=== PATIENT | female | born 1995 | race American Indian/Alaskan Native ===

== ENCOUNTER 2017-03-23 13:21 | Inpatient (IN) | payer MEDICAID ==
[2017-03-23] MEDS: TYLENOL PO PRN (14:20)
[2017-03-23 14:30] LABS: Hematocrit 33.6 % (30.3-42.9); Hemoglobin 11.7 gm/dl (10.1-14.3); Mean Corpuscular HGB Conc 35 % (30-34); Mean Corpuscular Hemoglobin 35 pg (28-32); Mean Corpuscular Volume 100 fl (79-97); Platelet Count 137 K/mm3 (140-440); Red Blood Count 3.37 M/mm3 (3.65-5.03); Red Cell Distribution Width 14.5 % (13.2-15.2)
[2017-03-23] MEDS ORDERED: APRESOLINE IV ONE ×2 (14:41→16:58)
[2017-03-23] MEDS ORDERED: MAGNESIUM SULFATE IV ONE (14:45)
[2017-03-23 14:53] LABS: Alanine Aminotransferase 16 units/L (7-56)
[2017-03-23] MEDS ORDERED: CELESTONE SOLUSPAN IM SCH (15:00)
[2017-03-23] MEDS ORDERED: MAGNESIUM SULFATE 40GM/1000ML 40 GM/1,000 ML BAG IV SCH (15:00)
[2017-03-23] MEDS ORDERED: MAGNESIUM SULFATE 4GM/100ML 4 GM/100 ML BAG IV ONE ×2 (15:33→17:00)
[2017-03-23 15:37] LABS: Bilirubin,Urine NEG (Negative); Blood,Urine SM (Negative); Color,Urine Yellow (Yellow); Hyaline Casts,Urine 5 /LPF; Mucus,Urine FEW /HPF; Nitrite,Urine NEG (Negative); Urobilinogen,Urine < 2.0 mg/dL (<2.0)
[2017-03-23 15:38] LABS: Protein,Urine >500 mg/dL (Negative)
[2017-03-23] MEDS ORDERED: LACTATED RINGERS 1,000 ML ONE (15:38)
[2017-03-23] MEDS: CELESTONE SOLUSPAN IM SCH (16:26)
[2017-03-23 16:31] LABS: Uric Acid 6.4 mg/dL (3.5-7.6)
[2017-03-23] MEDS ORDERED: XYLOCAINE 2% INFILTRATI ONE (16:33)
[2017-03-23] MEDS: MAGNESIUM SULFATE 40 GM in NACL 0.9% 1000 ML 1,000 ML IV SCH (16:45)
--- NOTE | 2017-03-23 16:45 | History and Physical Report ---
History of Present Illness Date of examination: 03/23/17 Date of admission: 03/23/2017 Chief complaint: 31 weeks with Elevated BP History of present illness: Patient is a 21 year old , LMP 08/13/16, EDC 05/20/17 at 31 weeks and 5 days gestation who was sent from the office for elevated BP. She went for a routine visit today and her BP was found to be in the 180-203/118-120' s. On arrival, she complained of headache, but denied any visual disturbances or RUQ pain. She denied any contractions, fluid leakage or bleeding, but reported good movement. tracing has been CAT 1 and toco showed no contractions. ` Past History Past Medical History: other (anemia, vit D def) Social history: other (marijuana use during this ) - Obstetrical History Expected Date of Delivery: 05/20/17 Actual Gestation: 31 Week(s) 5 Day(s) : 2 Para: 1 Induced : 1 Medications and Allergies Allergies Allergy/AdvReac Type Severity Reaction Status Date / Time No Known Allergies Allergy Unverified 05/18/13 19:31 Home Medications Medication Instructions Recorded Confirmed Last Taken Type Doxycycline [Vibramycin CAP] 100 mg PO BID #28 capsule 05/18/13 Unknown Rx metroNIDAZOLE [Flagyl] 500 mg PO BID #28 tablet 05/18/13 Unknown Rx HYDROcodone/APAP 5-325 [[place] 1 each PO Q6HR PRN #10 tablet 05/19/13 Unknown Rx 5/325 mg] Ibuprofen [Motrin 600 MG tab] 600 mg PO Q8H PRN #20 tablet 05/19/13 Unknown Rx Active Meds: Active Medications Acetaminophen (Tylenol) 650 mg PO Q6H PRN PRN Reason: Pain, Mild (1-3) Last Admin: 03/23/17 14:20 Dose: 650 mg Betamethasone Acet/Betameth SodPhos (Celestone Soluspan) 12 mg IM Q24HR ABEL Magnesium Sulfate 40 gm/ (Sodium Chloride) 1,080 mls @ 40.5 mls/hr IV DIRECT ABEL PRN Reason: 1.5 GM/HR Magnesium Sulfate (Magnesium Sulfate 4gm/100ml) 4 gm in 100 mls @ 200 mls/hr IV ONCE ONE Stop: 03/23/17 17:29 - Vital Signs Vital signs: Vital Signs Pulse Pulse Ox 58 L 100 01/30/18 13:58 03/23/17 13:58 Temp Pulse Resp BP Pulse Ox 98.3 F 77 18 129/82 100 03/23/17 15:00 03/23/17 16:36 03/23/17 14:20 03/23/17 16:36 03/23/17 15:03 - Physical Exam Cardiovascular: Normal S1, Normal S2 Lungs: Positive: Clear to auscultation Vulva: both: normal Extremities: Positive: edema Deep Tendon Reflex Grade: Normal +2 - Obstetrical FHR: category 1 Uterine Contraction Monitor Mode: External Cervical Dilatation: 0 Cervical Effacement Percentage: 0 station: -3 Results Result Diagrams: 03/23/17 14:10 03/23/17 14:10 Abnormal lab results 03/23/17 03/23/17 Range/Units 14:10 14:10 RBC 3.37 L (3.65-5.03) M/mm3 MCV 100 H (79-97) fl MCH 35 H (28-32) pg MCHC 35 H (30-34) % Plt Count 137 L (140-440) K/mm3 Lactate Dehydrogenase 339 H (91-180) units/L All other labs normal. Assessment and Plan - Patient Problems (1) 31 weeks gestation of Current Visit: Yes Status: Acute (2) Pre-eclampsia Current Visit: Yes Status: Acute Plan to address problem: Admit to labor floor. IV hydration. Toxemia labs ordered. BP monitoring. Hydralazine IV for diastolic over 105. Magnesium sulfate loading dose then maintenance at 1.5 gm/hour. Monitor Mg level and urine output. Monitor DTRs. Celestone for FLM, first dose given. Sonogram done at [facility]. EFW 2 lbs 8 oz. NILESH 12.3. BPP 8/8. MFM consult called for. Avril got the message for the MFM. (3) IUGR (intrauterine growth restriction) Current Visit: Yes Status: Acute Plan to address problem: Umbilical doppler-S/D ration ordered. (4) Anemia Current Visit: Yes Status: Acute Qualifiers: Anemia type: iron deficiency
[2017-03-23] MEDS: LACTATED RINGERS 1,000 ML IV SCH (16:55)
--- NOTE | 2017-03-23 17:22 | Ultrasound Report ---
FINAL REPORT EXAM: US OB BPP WO NON-STRESS HISTORY: well being TECHNIQUE: Biophysical profile obstetrical ultrasound PRIORS: None. FINDINGS: Biophysical profile scoring 2 movement 2 tone 2 breathing 2 fluid 8/8 overall score Cardiac motion: 134 BPM using M-mode doppler Amniotic Fluid Volume: Adequate IMPRESSION: Single intrauterine viable . Biophysical profile score is 8/8
--- NOTE | 2017-03-23 17:44 | Ultrasound Report ---
FINAL REPORT EXAM: US OB FOLLOW UP HISTORY: HTN . TECHNIQUE: Standard full obstetrical ultrasound PRIORS: None. FINDINGS: LMP: 08/13/2016 clinical Age: 31 w 5 d US Age (average) = 28 w 0 d EFW (BPD,HC,AC,FL) = 1124 g +/- 166 g (2 lbs. 8oz. +/- 6oz.) LMP EDC 05/20/2017 US EDC 06/15/2017 CI 77.6 (range 74 to 83) HC/AC 1.17 (range 0.96 to 0.17) FL/BPD 79.7 (range 71.3 to 87.3) FL/HC 21.5 (range 17.3 to 23.3) FL/AC 25.1 (range 20 to 24) BPD 7 cm corresponding to estimated age 28 weeks 0 days HC is 25.9 cm corresponding to estimated age 28 weeks 1 day AC 22.2 cm corresponding to estimated age 26 weeks 4 days FL 5.6 cm corresponding to estimated age 29 weeks 2 days Presentation: Cephalic Activity: Monitored Situs: Normal Placental location: Anterior to the left lateral aspect Placental grade: 3 Cardiac motion: 134 BPM using M-mode doppler Heart (4 CH) : Present Umbilical cord: 3 vessel Bladder: Present Kidneys: Present stomach: Present Diaphragm: Present Spine: Present brain and skull: Present with normal anatomy femurs: Present tibia/fibula: Present humerus: Present radius/ulna: Present Cord Insertion: Present Amniotic Fluid Volume: Adequate NILESH 12.4 cm Cervical Length: 3.6 cm Incidental note is made of several prominent venous lakes in the placenta. The largest measures 5.4 cm. IMPRESSION: Single intrauterine viable with an approximate age of 28 weeks 0 days.
--- NOTE | 2017-03-23 18:12 | Consultation ---
History of Present Illness Consult date: 03/23/17 Requesting physician: ED BORJA History of present illness: HPI 21 y/o ANA 05/10/17 EGA 31 5/7 weeks presented from OB's office with elevated BP's and Severe DUNCAN's BP's at OB noted to be 180-203/118-120's BP upon admission 200/103 per nurse - Received 2 doses of IV Hydralazine and last BP 129/82 Denies H/O CHTN - States Last seen her OB 2 weeks ago and BP normal Reported having DUNCAN's severe since Wednesday not relieved with Tylenol - also c/o of recent swelling in feet DUNCAN's described as 9-12/01 now resolved with Mg and IV Hydralazine and BP improved ======= 02/19/18 [facility] US Noted EFW at 1037 grams (2#5oz) at 39% and BP was 117/73 03/23/17 [facility] US Today EFW at 1124 grams (28 0/7 weeks) < 1 % SEVERE IUGR ----- NO Growth over past month. BPP 8/8 and NILESH at 12.4 cm and Dopplers were normal S/D at 2.6 ====== OB history 2012 Term F 7'9" no comps ====== Denies H/O STD, Med ds, Surg, C/D/D, NKA ====== Labs UA spot > 500 (will expect 24 Hour Urine prot to be extremely high ASL/ALT 23/16 Plts low at 137 H/H at 11.7/33 LDH high at 333 Creat at .7 ======= Abd soft NT No RUQ Pain Ext 1 plus edema DTR 1/4 (on Mg) No clonus EFM no decels ======= Past History Past Medical History: other (anemia, vit D def) - Obstetrical History : 2 Medications and Allergies Allergies Allergy/AdvReac Type Severity Reaction Status Date / Time No Known Allergies Allergy Unverified 05/18/13 19:31 Home Medications Medication Instructions Recorded Confirmed Last Taken Type Doxycycline [Vibramycin CAP] 100 mg PO BID #28 capsule 05/18/13 Unknown Rx metroNIDAZOLE [Flagyl] 500 mg PO BID #28 tablet 05/18/13 Unknown Rx HYDROcodone/APAP 5-325 [[place] 1 each PO Q6HR PRN #10 tablet 05/19/13 Unknown Rx 5/325 mg] Ibuprofen [Motrin 600 MG tab] 600 mg PO Q8H PRN #20 tablet 05/19/13 Unknown Rx Active Meds: Active Medications Acetaminophen (Tylenol) 650 mg PO Q6H PRN PRN Reason: Pain, Mild (1-3) Last Admin: 03/23/17 14:20 Dose: 650 mg Betamethasone Acet/Betameth SodPhos (Celestone Soluspan) 12 mg IM Q24HR ABEL Last Admin: 03/23/17 16:26 Dose: 12 mg Magnesium Sulfate 40 gm/ (Sodium Chloride) 1,080 mls @ 40.5 mls/hr IV DIRECT ABEL PRN Reason: 1.5 GM/HR Last Admin: 03/23/17 16:45 Dose: 1.5 gm/hr, 40.5 mls/hr Lactated Ringer's (Lactated Ringers) 1,000 mls @ 125 mls/hr IV DIRECT ABEL Last Admin: 03/23/17 16:55 Dose: 75 mls/hr Labetalol HCl (Normodyne) 200 mg PO BID ABEL - Vital Signs Vital signs: Vital Signs Pulse Pulse Ox 58 L 100 03/23/17 13:58 03/23/17 13:58 Temp Pulse Resp BP Pulse Ox 98.3 F 72 18 138/89 100 03/23/17 15:00 03/23/17 17:50 03/23/17 14:20 03/23/17 17:50 03/23/17 15:03 Results Result Diagrams: 03/23/17 14:10 03/23/17 14:10 Abnormal lab results 03/23/17 03/23/17 Range/Units 14:10 14:10 RBC 3.37 L (3.65-5.03) M/mm3 MCV 100 H (79-97) fl MCH 35 H (28-32) pg MCHC 35 H (30-34) % Plt Count 137 L (140-440) K/mm3 Lactate Dehydrogenase 339 H (91-180) units/L All other labs normal. Assessment and Plan Asses: 1. [place] IUP at 31 5/7 weeks (APA US Done 02/19/17 - see above) 2. Severe Preeclampsia 3. Severe IUGR at < 1% and No growth over 4 weeks 4. DUNCAN's 5. Thrombocytopenia - Plts at 137 Recommendations 1. Steroids for FLM 2. MgSO4 for both neurprophylaxis and seizure prophylaxis 3. IV Hydralazine or Labetalol for BP's Sys > 160 or diastolic > 110 4. Repeat PIH labs tomorrow am CBC, CMP, LDH Uric Acid 5. Type and screen 6. NICU consult 7. Seq Leg compressors 8. Repeat BPP and cord dopplers and tomorrow 9. Due to Severe Preeclampsia and Severe IUGR and Low Plts would try to get steroids on Board and plan for delivery 24 Hours after steroid complete. IF becomes more symptomatic or compromise or BP's increasing would proceed with delivery earlier. 10. Explained that no growth over past month and delivery indicated for above reasons. 11. Would obtain drug screen and HbA1c 12. Cont EFM
--- NOTE | 2017-03-23 18:40 | Ultrasound Report ---
FINAL REPORT PROCEDURE: Velocities umbilical artery. TECHNIQUE: Grayscale, color Doppler, and spectral waveform analysis of the umbilical artery. HISTORY: Hypertension. COMPARISON: Full obstetric ultrasound dated same day and time. FINDINGS: age: 31 weeks 5 days. S/D ratio average: 2.6 Waveform: Normal Resistive index average: 0.6 Diastolic flow: Persistent heart rate: 129 beats per minute. Impression Normal umbilical cord Doppler ratio, wave form, and resistive index. Persistent diastolic flow.
--- NOTE | 2017-03-23 18:53 | Ultrasound Report ---
FINAL REPORT PROCEDURE: US OB TRANSVAGINAL TECHNIQUE: Limited transvaginal grayscale images for cervical length. CPT 57513 HISTORY: Cervical length. COMPARISON: Full obstetric ultrasound including umbilical arterial Doppler dated same day and time. FINDINGS: Transvaginal cervical length 3.6 cm. There may be a trace amount of fluid in the cervix. IMPRESSION: Transvaginal cervical length 3.6 cm. There may be a trace amount of fluid in the cervix. Recommend clinical correlation. Please refer to full reports on full obstetric ultrasounds dated same day and time.
[2017-03-23] MEDS ORDERED: NORMODYNE IV ONE ×2 (20:17→20:19)
[2017-03-23] MEDS: NORMODYNE PO SCH (22:15)
[2017-03-23 23:15] LABS: Amphetamine Screen,Urine PRESUMPTIVE NEGATIVE; Benzodiazepines Screen,Urine PRESUMPTIVE NEGATIVE; Cocaine Screen,Urine PRESUMPTIVE NEGATIVE; Methadone Screen,Urine PRESUMPTIVE NEGATIVE; Opiate Screen,Urine PRESUMPTIVE NEGATIVE
[2017-03-23 23:27] LABS: Cannabinoid Screen,Urine PRESUMPTIVE POSITIVE
[2017-03-24] MEDS: LACTATED RINGERS 1,000 ML IV SCH ×2 (03:47→16:29)
[2017-03-24 06:29] LABS: Hematocrit 34.9 % (30.3-42.9); Hemoglobin 11.9 gm/dl (10.1-14.3); Mean Corpuscular HGB Conc 34 % (30-34); Mean Corpuscular Hemoglobin 34 pg (28-32); Mean Corpuscular Volume 101 fl (79-97); Platelet Count 141 K/mm3 (140-440); Red Blood Count 3.45 M/mm3 (3.65-5.03); Red Cell Distribution Width 14.7 % (13.2-15.2)
[2017-03-24 06:49] LABS: Alanine Aminotransferase 14 units/L (7-56); Albumin 2.5 g/dL (3.9-5); BUN/Creatinine Ratio 21; Blood Urea Nitrogen 17 mg/dL (7-17); Calcium 7.7 mg/dL (8.4-10.2); Hemolysis Index 13
--- NOTE | 2017-03-24 08:40 | Progress Note ---
Assessment and Plan - Patient Problems (1) 31 weeks gestation of Current Visit: Yes Status: Acute (2) Pre-eclampsia Current Visit: Yes Status: Acute Plan to address problem: Continue BP monitoring. Hydralazine IV for diastolic over 105. Labetolol BID. Magnesium sulfate at 1.5 gm/hr. Continue Mg levels Q6 hrs and respiration/DTRs monitoring and urine output. Celestone for FLM, second dose to be given today. Sonogram done at [facility]. EFW 2 lbs 8 oz. NILESH 12.3. BPP 8/8. (3) IUGR (intrauterine growth restriction) Current Visit: Yes Status: Acute Plan to address problem: Umbilical doppler flow was normal, S/D ratio 2.6. MFM consult was done. Agreed with current management and recommends delivery 24 hours after steroid completion. Will repeat sonogram with umbilical doppler today. If any signs of compromise or if BP becomes worse, will deliver today. Sonogram for BPP and doppler ordered for today. (4) Anemia Current Visit: Yes Status: Acute Qualifiers: Anemia type: iron deficiency Subjective - Subjective Date of service: 03/24/17 Principal diagnosis: 32 weeks with pre-eclampsia, IUGR Interval history: Patient is a 21 year old , LMP 08/13/16, EDC 05/20/17 at 31 weeks and 5 days gestation who was admitted yesterday for elevated BP. She went for a routine visit and her BP was found to be in the 180-203/118-120's. On arrival, she complained of headache, but denied any visual disturbances or RUQ pain. She denied any contractions, fluid leakage or bleeding, but reported good movement. She was treated with IV hydralazine and magnesium sulfate. Toxemia labs were normal. BP improved and is currently 127/82. Her Mg level is withing therapeutic range. Sonogram showed severe IUGR and normal S/D ratio. tracing has been CAT 1 and toco showed no contractions. M saw her and agreed with current management. he recommended delivery 24-hrs after steroid completion and repeat BPP and umbilical doppler today. If BP worsens or if umbilical doppler shows worsening flow, will delivery sooner. Objective - Vital Signs Vital Signs: Vital Signs - 12hr 03/23/17 03/23/17 03/23/17 20:51 21:06 21:21 Temperature Pulse Rate 75 105 H 76 Respiratory Rate Blood Pressure 137/91 124/86 145/98 Blood Pressure [Right] O2 Sat by Pulse Oximetry 03/23/17 03/23/17 03/23/17 21:35 21:50 22:06 Temperature Pulse Rate 74 80 77 Respiratory Rate Blood Pressure 148/103 140/95 129/84 Blood Pressure [Right] O2 Sat by Pulse Oximetry 03/23/17 03/23/17 03/23/17 22:15 22:22 22:36 Temperature Pulse Rate 77 78 81 Respiratory Rate Blood Pressure 129/84 129/87 134/78 Blood Pressure [Right] O2 Sat by Pulse Oximetry 03/23/17 03/23/17 03/23/17 22:52 23:06 23:21 Temperature Pulse Rate 77 79 86 Respiratory Rate Blood Pressure 128/77 122/75 123/77 Blood Pressure [Right] O2 Sat by Pulse Oximetry 03/23/17 03/23/17 03/24/17 23:36 23:51 00:06 Temperature Pulse Rate 77 77 77 Respiratory Rate Blood Pressure 135/89 140/95 130/79 Blood Pressure [Right] O2 Sat by Pulse Oximetry 03/24/17 03/24/17 03/24/17 00:22 00:35 00:51 Temperature Pulse Rate 85 82 75 Respiratory Rate Blood Pressure 143/97 143/96 146/100 Blood Pressure [Right] O2 Sat by Pulse Oximetry 03/24/17 03/24/17 03/24/17 01:06 01:20 01:35 Temperature Pulse Rate 74 77 76 Respiratory Rate Blood Pressure 143/84 134/82 131/80 Blood Pressure [Right] O2 Sat by Pulse Oximetry 03/24/17 03/24/17 03/24/17 01:51 02:05 02:21 Temperature Pulse Rate 88 85 83 Respiratory Rate Blood Pressure 131/79 138/78 124/77 Blood Pressure [Right] O2 Sat by Pulse Oximetry 03/24/17 03/24/17 03/24/17 02:35 02:51 03:06 Temperature Pulse Rate 80 85 78 Respiratory Rate Blood Pressure 130/81 140/78 137/80 Blood Pressure [Right] O2 Sat by Pulse Oximetry 03/24/17 03/24/17 03/24/17 03:21 03:35 03:50 Temperature 97.3 F L Pulse Rate 72 71 72 Respiratory 20 Rate Blood Pressure 131/82 127/79 130/83 Blood Pressure [Right] O2 Sat by Pulse Oximetry 03/24/17 03/24/17 03/24/17 03:56 04:01 04:06 Temperature Pulse Rate 74 73 71 Respiratory Rate Blood Pressure Blood Pressure [Right] O2 Sat by Pulse 100 100 99 Oximetry 03/24/17 03/24/17 03/24/17 04:11 04:16 04:21 Temperature Pulse Rate 74 73 72 Respiratory Rate Blood Pressure 125/76 Blood Pressure [Right] O2 Sat by Pulse 99 99 99 Oximetry 03/24/17 03/24/17 03/24/17 04:26 04:31 04:36 Temperature Pulse Rate 76 76 75 Respiratory Rate Blood Pressure Blood Pressure [Right] O2 Sat by Pulse 99 99 99 Oximetry 03/24/17 03/24/17 03/24/17 04:41 04:46 04:51 Temperature Pulse Rate 75 76 75 Respiratory Rate Blood Pressure 124/80 Blood Pressure [Right] O2 Sat by Pulse 99 99 99 Oximetry 03/24/17 03/24/17 03/24/17 04:56 05:01 05:06 Temperature Pulse Rate 75 75 76 Respiratory Rate Blood Pressure Blood Pressure [Right] O2 Sat by Pulse 99 99 99 Oximetry 03/24/17 03/24/17 03/24/17 05:11 05:16 05:21 Temperature Pulse Rate 75 75 76 Respiratory Rate Blood Pressure 134/80 Blood Pressure [Right] O2 Sat by Pulse 99 99 99 Oximetry 03/24/17 03/24/17 03/24/17 05:26 05:31 05:36 Temperature Pulse Rate 78 85 81 Respiratory Rate Blood Pressure Blood Pressure [Right] O2 Sat by Pulse 99 99 99 Oximetry 03/24/17 03/24/17 03/24/17 05:41 05:46 05:50 Temperature Pulse Rate 78 75 74 Respiratory 18 Rate Blood Pressure Blood Pressure [Right] O2 Sat by Pulse 99 99 99 Oximetry 03/24/17 03/24/17 03/24/17 05:51 05:56 06:01 Temperature Pulse Rate 75 74 78 Respiratory Rate Blood Pressure 128/85 Blood Pressure [Right] O2 Sat by Pulse 99 99 Oximetry 03/24/17 03/24/17 03/24/17 06:06 06:11 06:16 Temperature Pulse Rate 75 75 82 Respiratory Rate Blood Pressure Blood Pressure [Right] O2 Sat by Pulse 99 99 100 Oximetry 03/24/17 03/24/17 03/24/17 06:21 06:26 06:31 Temperature Pulse Rate 74 76 73 Respiratory Rate Blood Pressure 128/84 Blood Pressure [Right] O2 Sat by Pulse 100 100 99 Oximetry 03/24/17 03/24/17 03/24/17 06:35 06:36 06:41 Temperature Pulse Rate 80 76 74 Respiratory Rate Blood Pressure 132/87 Blood Pressure [Right] O2 Sat by Pulse 100 100 Oximetry 03/24/17 03/24/17 03/24/17 06:46 06:51 06:56 Temperature Pulse Rate 74 79 73 Respiratory Rate Blood Pressure Blood Pressure [Right] O2 Sat by Pulse 100 100 99 Oximetry 03/24/17 03/24/17 03/24/17 07:01 07:05 07:10 Temperature Pulse Rate 77 74 72 Respiratory Rate Blood Pressure Blood Pressure [Right] O2 Sat by Pulse 99 99 99 Oximetry 03/24/17 03/24/17 03/24/17 07:16 07:21 07:26 Temperature Pulse Rate 74 77 74 Respiratory Rate Blood Pressure Blood Pressure [Right] O2 Sat by Pulse 99 99 99 Oximetry 03/24/17 03/24/17 03/24/17 07:31 07:35 07:36 Temperature Pulse Rate 73 88 87 Respiratory Rate Blood Pressure 121/79 Blood Pressure [Right] O2 Sat by Pulse 99 100 Oximetry 03/24/17 03/24/17 03/24/17 07:41 07:46 07:51 Temperature Pulse Rate 75 77 82 Respiratory Rate Blood Pressure Blood Pressure [Right] O2 Sat by Pulse 99 99 99 Oximetry 03/24/17 03/24/17 03/24/17 07:55 08:01 08:06 Temperature 98.1 F Pulse Rate 82 74 78 Respiratory 18 Rate Blood Pressure Blood Pressure 123/82 [Right] O2 Sat by Pulse 99 100 99 Oximetry 03/24/17 03/24/17 03/24/17 08:11 08:16 08:21 Temperature Pulse Rate 73 77 76 Respiratory Rate Blood Pressure 123/82 Blood Pressure [Right] O2 Sat by Pulse 100 100 100 Oximetry 03/24/17 03/24/17 03/24/17 08:26 08:31 08:35 Temperature Pulse Rate 79 83 74 Respiratory Rate Blood Pressure 143/90 Blood Pressure [Right] O2 Sat by Pulse 99 100 Oximetry 03/24/17 08:36 Temperature Pulse Rate 73 Respiratory Rate Blood Pressure Blood Pressure [Right] O2 Sat by Pulse 100 Oximetry - Exam Cardiovascular: Normal S1, Normal S2 Lungs: Clear to auscultation FHR: category 1 Uterine Contraction Monitor Mode: External Uterine Contraction Pattern: Absent Extremities: edema Deep Tendon Reflex Grade: Normal +2 - Labs Labs: Abnormal Labs 03/23/17 03/23/17 03/24/17 14:10 14:10 00:16 RBC 3.37 L MCV 100 H MCH 35 H MCHC 35 H Plt Count 137 L Sodium Carbon Dioxide Glucose Calcium Magnesium 4.30 H Lactate Dehydrogenase 339 H Total Protein Albumin 03/24/17 03/24/17 03/24/17 06:11 06:11 06:11 RBC 3.45 L MCV 101 H MCH 34 H MCHC Plt Count Sodium 134 L Carbon Dioxide 21 L Glucose 112 H Calcium 7.7 L Magnesium 5.20 H Lactate Dehydrogenase 322 H Total Protein 5.7 L Albumin 2.5 L Laboratory Results - last 24 hr 03/23/17 03/23/17 03/23/17 13:30 14:10 14:10 WBC 7.1 RBC 3.37 L Hgb 11.7 Hct 33.6 MCV 100 H MCH 35 H MCHC 35 H RDW 14.5 Plt Count 137 L Sodium Potassium Chloride Carbon Dioxide Anion Gap BUN Creatinine 0.7 Estimated GFR > 60 BUN/Creatinine Ratio Glucose Hemoglobin A1c Uric Acid 6.4 Calcium Magnesium Total Bilirubin AST 23 ALT 16 Alkaline Phosphatase Lactate Dehydrogenase 339 H Total Protein Albumin Albumin/Globulin Ratio Urine Color Yellow Urine Turbidity Clear Urine pH 6.0 Ur Specific Combs 1.023 Urine Protein >500 Urine Glucose (UA) Neg Urine Ketones Neg Urine Blood Sm Urine Nitrite Neg Urine Bilirubin Neg Urine Urobilinogen < 2.0 Ur Leukocyte Esterase Neg Urine WBC (Auto) 2.0 Urine RBC (Auto) 6.0 U Epithel Cells (Auto) 2.0 Hyaline Casts 5 Urine Mucus Few Urine Opiates Screen Urine Methadone Screen Ur Barbiturates Screen Ur Phencyclidine Scrn Ur Amphetamines Screen U Benzodiazepines Scrn Urine Cocaine Screen U Marijuana (THC) Screen Drugs of Abuse Note Blood Type Antibody Screen 03/23/17 03/23/17 03/23/17 14:10 22:42 23:49 WBC RBC Hgb Hct MCV MCH MCHC RDW Plt Count Sodium Potassium Chloride Carbon Dioxide Anion Gap BUN Creatinine Estimated GFR BUN/Creatinine Ratio Glucose Hemoglobin A1c 5.0 Uric Acid Calcium Magnesium Total Bilirubin AST ALT Alkaline Phosphatase Lactate Dehydrogenase Total Protein Albumin Albumin/Globulin Ratio Urine Color Urine Turbidity Urine pH Ur Specific Combs Urine Protein Urine Glucose (UA) Urine Ketones Urine Blood Urine Nitrite Urine Bilirubin Urine Urobilinogen Ur Leukocyte Esterase Urine WBC (Auto) Urine RBC (Auto) U Epithel Cells (Auto) Hyaline Casts Urine Mucus Urine Opiates Screen Presumptive negative Urine Methadone Screen Presumptive negative Ur Barbiturates Screen Presumptive negative Ur Phencyclidine Scrn Presumptive negative Ur Amphetamines Screen Presumptive negative U Benzodiazepines Scrn Presumptive negative Urine Cocaine Screen Presumptive negative U Marijuana (THC) Screen Presumptive positive Drugs of Abuse Note Disclamer Blood Type A POSITIVE Antibody Screen Negative 03/24/17 03/24/17 03/24/17 00:16 06:11 06:11 WBC 10.4 RBC 3.45 L Hgb 11.9 Hct 34.9 MCV 101 H MCH 34 H MCHC 34 RDW 14.7 Plt Count 141 Sodium 134 L Potassium 4.5 Chloride 101.3 Carbon Dioxide 21 L Anion Gap 16 BUN 17 Creatinine 0.8 Estimated GFR > 60 BUN/Creatinine Ratio 21 Glucose 112 H Hemoglobin A1c Uric Acid 6.0 Calcium 7.7 L Magnesium 4.30 H Total Bilirubin < 0.20 AST 18 ALT 14 Alkaline Phosphatase 106 Lactate Dehydrogenase 322 H Total Protein 5.7 L Albumin 2.5 L Albumin/Globulin Ratio 0.8 Urine Color Urine Turbidity Urine pH Ur Specific Combs Urine Protein Urine Glucose (UA) Urine Ketones Urine Blood Urine Nitrite Urine Bilirubin Urine Urobilinogen Ur Leukocyte Esterase Urine WBC (Auto) Urine RBC (Auto) U Epithel Cells (Auto) Hyaline Casts Urine Mucus Urine Opiates Screen Urine Methadone Screen Ur Barbiturates Screen Ur Phencyclidine Scrn Ur Amphetamines Screen U Benzodiazepines Scrn Urine Cocaine Screen U Marijuana (THC) Screen Drugs of Abuse Note Blood Type Antibody Screen 03/24/17 06:11 WBC RBC Hgb Hct MCV MCH MCHC RDW Plt Count Sodium Potassium Chloride Carbon Dioxide Anion Gap BUN Creatinine Estimated GFR BUN/Creatinine Ratio Glucose Hemoglobin A1c Uric Acid Calcium Magnesium 5.20 H Total Bilirubin AST ALT Alkaline Phosphatase Lactate Dehydrogenase Total Protein Albumin Albumin/Globulin Ratio Urine Color Urine Turbidity Urine pH Ur Specific Combs Urine Protein Urine Glucose (UA) Urine Ketones Urine Blood Urine Nitrite Urine Bilirubin Urine Urobilinogen Ur Leukocyte Esterase Urine WBC (Auto) Urine RBC (Auto) U Epithel Cells (Auto) Hyaline Casts Urine Mucus Urine Opiates Screen Urine Methadone Screen Ur Barbiturates Screen Ur Phencyclidine Scrn Ur Amphetamines Screen U Benzodiazepines Scrn Urine Cocaine Screen U Marijuana (THC) Screen Drugs of Abuse Note Blood Type Antibody Screen
[2017-03-24] MEDS: NORMODYNE PO SCH ×2 (09:59→21:59)
[2017-03-24] MEDS: TYLENOL PO PRN (10:20)
--- NOTE | 2017-03-24 11:33 | Ultrasound Report ---
ULTRASOUND BIOPHYSICAL PROFILE: History: Severe intrauterine growth restriction Technique: Transabdominal ultrasound with Doppler interrogation. 2 - breathing movements 2 - movements 2 - posture and tone 2 - Qualitative amniotic fluid volume 8 - TOTAL SCORE OF POSSIBLE 8 Heart Rate (bpm) 119
--- NOTE | 2017-03-24 11:42 | Ultrasound Report ---
ULTRASOUND OB VELOCIMETRY UMBILICAL ARTERY HISTORY: Severe intrauterine growth restriction. FINDINGS: Transabdominal ultrasound with M mode and spectral Doppler analysis was performed on 3 segments of the umbilical cord. heart rate measures 126 beats per minute. The average S/D ratio measures 3.83. The average resistive index measures 0.74. The spectral waveforms are normal and persistent. No evidence for loss or reversal of end-diastolic flow.
[2017-03-24] MEDS ORDERED: DIFLUCAN PO ONE (13:00)
--- NOTE | 2017-03-24 15:14 | Consultation ---
History of Present Illness Consult date: 03/24/17 Requesting physician: ED BORJA Reason for consult: prematurity (31 weeks gestion with severe IUGR and maternal pre eclampsia) Documentation - Maternal Info Maternal Blood Type: A (+) positive HbsAg: Negative HIV: Negative RPR/VDRL: Non-reactive Chlamydia: Negative Gonorrhea: Negative Herpes: Negative Group Beta Strep: Unknown Rubella: Immune - information: Height 5 ft 7 in Medications and Allergies Allergies Allergy/AdvReac Type Severity Reaction Status Date / Time No Known Allergies Allergy Unverified 05/18/13 19:31 Home Medications Medication Instructions Recorded Confirmed Last Taken Type Doxycycline [Vibramycin CAP] 100 mg PO BID #28 capsule 05/18/13 03/24/17 Unknown Rx metroNIDAZOLE [Flagyl] 500 mg PO BID #28 tablet 05/18/13 03/24/17 Unknown Rx HYDROcodone/APAP 5-325 [[place] 1 each PO Q6HR PRN #10 tablet 05/19/13 03/24/17 Unknown Rx 5/325 mg] Ibuprofen [Motrin 600 MG tab] 600 mg PO Q8H PRN #20 tablet 05/19/13 03/24/17 Unknown Rx Ferrous Sulfate [Iron] 325 mg PO DAILY 03/24/17 03/24/17 03/23/17 08:00 History Multivitamin Tablet 1 tab PO DAILY 03/24/17 03/24/17 03/23/17 08:00 History Active Meds: Active Medications Acetaminophen (Tylenol) 650 mg PO Q6H PRN PRN Reason: Pain, Mild (1-3) Last Admin: 03/24/17 10:20 Dose: 650 mg Betamethasone Acet/Betameth SodPhos (Celestone Soluspan) 12 mg IM Q24HR ABEL Last Admin: 03/23/17 16:26 Dose: 12 mg Magnesium Sulfate 40 gm/ (Sodium Chloride) 1,080 mls @ 40.5 mls/hr IV DIRECT ABEL PRN Reason: 1.5 GM/HR Last Admin: 03/23/17 16:45 Dose: 1.5 gm/hr, 40.5 mls/hr Lactated Ringer's (Lactated Ringers) 1,000 mls @ 125 mls/hr IV DIRECT ABEL Last Admin: 03/24/17 03:47 Dose: 84.5 mls/hr Labetalol HCl (Normodyne) 200 mg PO BID ABEL Last Admin: 03/24/17 09:59 Dose: 200 mg Exam Vital Signs Pulse Pulse Ox 58 L 100 03/23/17 13:58 03/23/17 13:58 Temp Pulse Resp BP Pulse Ox 98.4 F 83 18 148/91 78 L 03/24/17 12:40 03/24/17 14:37 03/24/17 12:40 03/24/17 14:36 03/24/17 14:37 Results - Laboratory Findings 03/24/17 06:11 03/24/17 06:11 Abnormal lab results 03/23/17 03/24/17 03/24/17 Range/Units 14:10 00:16 06:11 RBC 3.45 L (3.65-5.03) M/mm3 MCV 101 H (79-97) fl MCH 34 H (28-32) pg Sodium (137-145) mmol/L Carbon Dioxide (22-30) mmol/L Glucose (65-100) mg/dL Calcium (8.4-10.2) mg/dL Magnesium 4.30 H (1.7-2.3) mg/dL Lactate Dehydrogenase 339 H (91-180) units/L Total Protein (6.3-8.2) g/dL Albumin (3.9-5) g/dL 03/24/17 03/24/17 Range/Units 06:11 06:11 RBC (3.65-5.03) M/mm3 MCV (79-97) fl MCH (28-32) pg Sodium 134 L (137-145) mmol/L Carbon Dioxide 21 L (22-30) mmol/L Glucose 112 H (65-100) mg/dL Calcium 7.7 L (8.4-10.2) mg/dL Magnesium 5.20 H (1.7-2.3) mg/dL Lactate Dehydrogenase 322 H (91-180) units/L Total Protein 5.7 L (6.3-8.2) g/dL Albumin 2.5 L (3.9-5) g/dL Assessment and Plan Survival at 31 weeks gestation without significant co-morbity is approximately 95%. I explained to mother the need for NICU admission after delivery, the possible need for intubation and mechanical ventilation, non-invasive ventilation, umbilical lines, NG feeds and the risk of IVH, infections and other comorbities whilst in the NICU. Mother expressed understanding of the information provided and had no questions. She wants to provide breast milk for her baby whilst in the NICU and I encouraged her to start pumping soon after delivery. Plan: Agree with steroids, and MgSO4 NICU will attend delivery Please call NICU with questions.
[2017-03-24] MEDS: CELESTONE SOLUSPAN IM SCH (16:32)
[2017-03-24 18:59] LABS: Creatinine 24 Hour,Urine 1.7 (0.8-2.8); Creatinine,Urine 160.6 mg/dL (0.1-20.0)
--- NOTE | 2017-03-24 19:28 | Consultation ---
History of Present Illness Consult date: 03/24/17 Requesting physician: ED BORJA Reason for consult: gestational hypertension History of present illness: Continue BP monitoring. Hydralazine IV for diastolic over 105. Labetolol BID. Magnesium sulfate at 1.5 gm/hr. Continue Mg levels Q6 hrs and respiration/DTRs monitoring and urine output. Celestone for FLM, Sonogram done at [facility]. EFW 2 lbs 8 oz. NILESH 12.3. BPP 8/8. Past History Past Medical History: other (anemia, vit D def) - Obstetrical History : 2 Medications and Allergies Allergies Allergy/AdvReac Type Severity Reaction Status Date / Time No Known Allergies Allergy Unverified 05/18/13 19:31 Home Medications Medication Instructions Recorded Confirmed Last Taken Type Doxycycline [Vibramycin CAP] 100 mg PO BID #28 capsule 05/18/13 03/24/17 Unknown Rx metroNIDAZOLE [Flagyl] 500 mg PO BID #28 tablet 05/18/13 03/24/17 Unknown Rx HYDROcodone/APAP 5-325 [[place] 1 each PO Q6HR PRN #10 tablet 05/19/13 03/24/17 Unknown Rx 5/325 mg] Ibuprofen [Motrin 600 MG tab] 600 mg PO Q8H PRN #20 tablet 05/19/13 03/24/17 Unknown Rx Ferrous Sulfate [Iron] 325 mg PO DAILY 03/24/17 03/24/17 03/23/17 08:00 History Multivitamin Tablet 1 tab PO DAILY 03/24/17 03/24/17 03/23/17 08:00 History Active Meds: Active Medications Acetaminophen (Tylenol) 650 mg PO Q6H PRN PRN Reason: Pain, Mild (1-3) Last Admin: 03/24/17 10:20 Dose: 650 mg Betamethasone Acet/Betameth SodPhos (Celestone Soluspan) 12 mg IM Q24HR ABEL Last Admin: 03/24/17 16:32 Dose: 12 mg Magnesium Sulfate 40 gm/ (Sodium Chloride) 1,080 mls @ 40.5 mls/hr IV DIRECT ABEL PRN Reason: 1.5 GM/HR Last Admin: 03/23/17 16:45 Dose: 1.5 gm/hr, 40.5 mls/hr Lactated Ringer's (Lactated Ringers) 1,000 mls @ 125 mls/hr IV DIRECT ABEL Last Admin: 03/24/17 16:29 Dose: 84.5 mls/hr Labetalol HCl (Normodyne) 200 mg PO BID [facility] Last Admin: 03/24/17 09:59 Dose: 200 mg - Vital Signs Vital signs: Vital Signs Pulse Pulse Ox 58 L 100 03/23/17 13:58 03/23/17 13:58 Temp Pulse Resp BP Pulse Ox 98.4 F 75 18 135/88 99 03/24/17 16:25 03/24/17 19:27 03/24/17 16:25 03/24/17 18:35 03/24/17 19:27 Results Result Diagrams: 03/24/17 06:11 03/24/17 06:11 Abnormal lab results 03/24/17 03/24/17 03/24/17 Range/Units 00:16 06:11 06:11 RBC 3.45 L (3.65-5.03) M/mm3 MCV 101 H (79-97) fl MCH 34 H (28-32) pg Sodium 134 L (137-145) mmol/L Carbon Dioxide 21 L (22-30) mmol/L Glucose 112 H (65-100) mg/dL Calcium 7.7 L (8.4-10.2) mg/dL Magnesium 4.30 H (1.7-2.3) mg/dL Lactate Dehydrogenase 322 H (91-180) units/L Total Protein 5.7 L (6.3-8.2) g/dL Albumin 2.5 L (3.9-5) g/dL Urine Creatinine (0.1-20.0) mg/dL Ur Total Protein 24 Hr (2-200) Urine Total Protein (5-11.8) mg/dL 03/24/17 03/24/17 03/24/17 Range/Units 06:11 18:00 18:10 RBC (3.65-5.03) M/mm3 MCV (79-97) fl MCH (28-32) pg Sodium (137-145) mmol/L Carbon Dioxide (22-30) mmol/L Glucose (65-100) mg/dL Calcium (8.4-10.2) mg/dL Magnesium 5.20 H 5.50 H (1.7-2.3) mg/dL Lactate Dehydrogenase (91-180) units/L Total Protein (6.3-8.2) g/dL Albumin (3.9-5) g/dL Urine Creatinine 160.6 H (0.1-20.0) mg/dL Ur Total Protein 24 Hr 6132.00 H (2-200) Urine Total Protein 584 H (5-11.8) mg/dL All other labs normal. Assessment and Plan RECOMMENDATION: Umbilical doppler flow was normal, S/D ratio 2.6. MFM consult was done. Agreed with current management and recommends delivery 24 hours after steroid completion. Will repeat sonogram with umbilical doppler today. If any signs of compromise or if BP becomes worse, will deliver today. Sonogram for BPP and doppler ordered for today. Recommend delivery 24 hours after second dose of steroids or earlier if clinically indicated.
[2017-03-24] MEDS: MAGNESIUM SULFATE 40 GM in NACL 0.9% 1000 ML 1,000 ML IV SCH (20:42)
[2017-03-25] MEDS: LACTATED RINGERS 1,000 ML IV SCH ×2 (05:01→19:32)
--- NOTE | 2017-03-25 08:17 | Progress Note ---
Assessment and Plan A: 21-year-old at 32+1 weeks with preeclampsia w/ severe features -BP well controlled at this time -NST w/ minimal variability Issues -IUGR <1% -BPP 6/8 -Nephrotic range proteinuria -s/p Celestone course -Day # 3 of Mag -s/p NICU consult P: -Will start induction process with low dose -Continue present care -Anticipate normal vaginal delivery -Consider repeating 24-hour urine protein after delivery - Patient Problems (1) 32 weeks gestation of Current Visit: Yes Status: Acute (2) IUGR (intrauterine growth restriction) Current Visit: Yes Status: Acute (3) Severe pre-eclampsia Current Visit: Yes Status: Acute Subjective - Subjective Date of service: 03/25/17 Principal diagnosis: 32 weeks with pre-eclampsia, IUGR Interval history: She was seen and examined, stable overnight. No headaches, no scotomata no epigastric pain. Blood pressure well controlled, still on magnesium. BPP done, 6 out of 8 (-2 breathing) Normal Dopplers Patient reports: new complaints, no loss of fluid, no vaginal bleeding, no contractions Objective - Vital Signs Vital Signs: Vital Signs - 12hr 03/24/17 03/24/17 03/24/17 20:36 20:51 21:35 Pulse Rate 88 78 68 Blood Pressure 144/86 128/80 O2 Sat by Pulse 99 Oximetry 03/24/17 03/24/17 03/24/17 21:36 21:42 21:47 Pulse Rate 83 76 77 Blood Pressure O2 Sat by Pulse 98 99 99 Oximetry 03/24/17 03/24/17 03/24/17 21:51 21:57 21:59 Pulse Rate 75 72 72 Blood Pressure 128/80 O2 Sat by Pulse 99 99 Oximetry 03/24/17 03/24/17 03/24/17 22:02 22:06 22:12 Pulse Rate 71 83 74 Blood Pressure O2 Sat by Pulse 99 99 100 Oximetry 03/24/17 03/24/17 03/24/17 22:17 22:21 22:27 Pulse Rate 68 70 73 Blood Pressure O2 Sat by Pulse 100 100 100 Oximetry 03/24/17 03/24/17 03/24/17 22:32 22:36 22:42 Pulse Rate 68 67 71 Blood Pressure 153/96 O2 Sat by Pulse 100 100 100 Oximetry 03/24/17 03/24/17 03/24/17 22:46 22:51 22:56 Pulse Rate 69 74 76 Blood Pressure O2 Sat by Pulse 100 100 99 Oximetry 03/24/17 03/24/17 03/24/17 23:01 23:07 23:11 Pulse Rate 71 71 69 Blood Pressure O2 Sat by Pulse 100 99 100 Oximetry 03/24/17 03/24/17 03/24/17 23:17 23:22 23:28 Pulse Rate 71 74 73 Blood Pressure O2 Sat by Pulse 100 99 100 Oximetry 03/24/17 03/24/17 03/24/17 23:32 23:35 23:38 Pulse Rate 68 71 70 Blood Pressure 139/85 O2 Sat by Pulse 100 100 Oximetry 03/24/17 03/24/17 03/24/17 23:44 23:49 23:54 Pulse Rate 77 69 72 Blood Pressure O2 Sat by Pulse 99 99 99 Oximetry 03/24/17 03/25/17 03/25/17 23:59 00:04 00:09 Pulse Rate 67 80 68 Blood Pressure O2 Sat by Pulse 99 99 99 Oximetry 03/25/17 03/25/17 03/25/17 00:14 00:19 00:25 Pulse Rate 68 72 79 Blood Pressure O2 Sat by Pulse 99 99 99 Oximetry 03/25/17 03/25/17 03/25/17 00:30 00:34 00:35 Pulse Rate 68 70 69 Blood Pressure 124/84 O2 Sat by Pulse 99 99 Oximetry 03/25/17 03/25/17 03/25/17 00:40 00:45 00:55 Pulse Rate 69 75 68 Blood Pressure O2 Sat by Pulse 99 100 100 Oximetry 03/25/17 03/25/17 03/25/17 01:00 01:05 01:10 Pulse Rate 75 69 69 Blood Pressure O2 Sat by Pulse 99 99 99 Oximetry 03/25/17 03/25/17 03/25/17 01:15 01:20 01:25 Pulse Rate 71 69 69 Blood Pressure O2 Sat by Pulse 99 98 99 Oximetry 03/25/17 03/25/17 03/25/17 01:30 01:35 01:40 Pulse Rate 69 69 70 Blood Pressure 122/73 O2 Sat by Pulse 98 97 98 Oximetry 03/25/17 03/25/17 03/25/17 01:45 01:50 01:55 Pulse Rate 68 68 70 Blood Pressure O2 Sat by Pulse 97 97 97 Oximetry 03/25/17 03/25/17 03/25/17 02:00 02:05 02:10 Pulse Rate 71 70 65 Blood Pressure O2 Sat by Pulse 97 97 99 Oximetry 03/25/17 03/25/17 03/25/17 02:15 02:20 02:25 Pulse Rate 67 67 68 Blood Pressure O2 Sat by Pulse 96 96 96 Oximetry 03/25/17 03/25/17 03/25/17 02:31 02:35 02:40 Pulse Rate 69 69 69 Blood Pressure 125/74 O2 Sat by Pulse 96 95 96 Oximetry 03/25/17 03/25/17 03/25/17 02:45 02:50 02:55 Pulse Rate 68 68 66 Blood Pressure O2 Sat by Pulse 96 96 96 Oximetry 03/25/17 03/25/17 03/25/17 03:00 03:06 03:10 Pulse Rate 66 71 78 Blood Pressure O2 Sat by Pulse 97 99 100 Oximetry 03/25/17 03/25/17 03/25/17 03:15 03:20 03:25 Pulse Rate 64 71 65 Blood Pressure O2 Sat by Pulse 100 100 100 Oximetry 03/25/17 03/25/17 03/25/17 03:30 03:35 03:36 Pulse Rate 68 71 66 Blood Pressure 132/85 O2 Sat by Pulse 100 100 Oximetry 03/25/17 03/25/17 03/25/17 04:07 04:08 04:13 Pulse Rate 52 L 71 69 Blood Pressure O2 Sat by Pulse 80 L 100 100 Oximetry 03/25/17 03/25/17 03/25/17 04:18 04:23 04:24 Pulse Rate 70 67 Blood Pressure O2 Sat by Pulse 100 100 70 L Oximetry 03/25/17 03/25/17 03/25/17 04:29 04:34 04:35 Pulse Rate 51 L 68 66 Blood Pressure 144/92 O2 Sat by Pulse 79 L 100 Oximetry 03/25/17 03/25/17 03/25/17 04:39 04:44 04:49 Pulse Rate 71 79 70 Blood Pressure O2 Sat by Pulse 100 99 100 Oximetry 03/25/17 03/25/17 03/25/17 04:54 04:59 05:04 Pulse Rate 71 72 72 Blood Pressure O2 Sat by Pulse 100 100 100 Oximetry 03/25/17 03/25/17 03/25/17 05:09 05:14 05:19 Pulse Rate 86 69 75 Blood Pressure O2 Sat by Pulse 100 100 100 Oximetry 03/25/17 03/25/17 03/25/17 05:26 05:31 05:35 Pulse Rate 69 68 71 Blood Pressure 140/94 O2 Sat by Pulse 100 100 Oximetry 03/25/17 05:36 Pulse Rate 74 Blood Pressure O2 Sat by Pulse 100 Oximetry - Exam Cervical Dilatation: 0.5 - Labs Labs: Abnormal Labs 03/23/17 03/23/17 03/24/17 14:10 14:10 00:16 RBC 3.37 L MCV 100 H MCH 35 H MCHC 35 H Plt Count 137 L Sodium Carbon Dioxide Glucose Calcium Magnesium 4.30 H Lactate Dehydrogenase 339 H Total Protein Albumin Urine Creatinine Ur Total Protein 24 Hr Urine Total Protein 03/24/17 03/24/17 03/24/17 06:11 06:11 06:11 RBC 3.45 L MCV 101 H MCH 34 H MCHC Plt Count Sodium 134 L Carbon Dioxide 21 L Glucose 112 H Calcium 7.7 L Magnesium 5.20 H Lactate Dehydrogenase 322 H Total Protein 5.7 L Albumin 2.5 L Urine Creatinine Ur Total Protein 24 Hr Urine Total Protein 03/24/17 03/24/17 03/25/17 18:00 18:10 00:41 RBC MCV MCH MCHC Plt Count Sodium Carbon Dioxide Glucose Calcium Magnesium 5.50 H 5.10 H Lactate Dehydrogenase Total Protein Albumin Urine Creatinine 160.6 H Ur Total Protein 24 Hr 6132.00 H Urine Total Protein 584 H 03/25/17 06:14 RBC MCV MCH MCHC Plt Count Sodium Carbon Dioxide Glucose Calcium Magnesium 5.10 H Lactate Dehydrogenase Total Protein Albumin Urine Creatinine Ur Total Protein 24 Hr Urine Total Protein Laboratory Results - last 24 hr 03/24/17 03/24/17 03/25/17 18:00 18:10 00:41 Magnesium 5.50 H 5.10 H Urine Total Volume 1050 Urine Creatinine 160.6 H Ur Creatinine 24 Hour 1.7 Ur Total Protein 24 Hr 6132.00 H Urine Total Protein 584 H 03/25/17 06:14 Magnesium 5.10 H Urine Total Volume Urine Creatinine Ur Creatinine 24 Hour Ur Total Protein 24 Hr Urine Total Protein
--- NOTE | 2017-03-25 09:16 | Ultrasound Report ---
LIMITED OB ULTRASOUND: Elevated BP. Gestation: [place] Position: Cephalic NILESH = 10.9 cm Heart Rate: 111 BPM Estimated gestational age is 32 weeks. BIOPHYSICAL PROFILE: 0 - breathing movements 2 - movements 2 - posture and tone 2 - Qualitative amniotic fluid volume 6 - TOTAL SCORE OF POSSIBLE 8 Heart Rate (bpm) 109
--- NOTE | 2017-03-25 09:20 | Ultrasound Report ---
Doppler cord imaging: Elevated BP. 32 week gestation. The average systolic to diastolic ratio of 3 umbilical cord loops is 2.78 with a persistent normal waveform. This falls between the 50th and 75th percentile. The average resistive index is 0.63 which falls between the 50th and 95th percentile.
[2017-03-25] MEDS ORDERED: PITOCin/NS 30 UNIT/500ML 30 UNITS/500 ML BAG IV SCH (12:00)
[2017-03-25] MEDS ORDERED: PEPCID IV SCH (15:39)
[2017-03-25] MEDS ORDERED: REGLAN IV SCH (15:39)
[2017-03-25 15:46] LABS: Hemoglobin 10.5 gm/dl (10.1-14.3); Mean Corpuscular HGB Conc 33 % (30-34); Mean Corpuscular Hemoglobin 33 pg (28-32); Mean Corpuscular Volume 101 fl (79-97); Platelet Count 161 K/mm3 (140-440); Red Blood Count 3.19 M/mm3 (3.65-5.03); Red Cell Distribution Width 14.6 % (13.2-15.2)
--- NOTE | 2017-03-25 15:47 | Event Note ---
Date: 03/25/17 Patient with recurrent decelerations on 2 MU of Pitocin. This was reduced to 1 MU. Minimal variability noted. In view of poor tolerance of Pitocin, will proceed with primary for severe IUGR and preeclampsia with severe features. Patient has been consented
--- NOTE | 2017-03-25 15:54 | Anesthesia Day of Surgery ---
Anesthesia Day of Surgery - Day of Surgery Patient Examined: Yes Patient H&P Reviewed: Yes Patient is NPO: Yes Beta Blockers: No Cardiac Clearance: Yes Pulmonary Clearance: Yes
--- NOTE | 2017-03-25 15:54 | Anesthesia Consultation ---
Anesthesia Consult and Med Hx Date of service: 03/25/17 - Airway Anesthetic Teeth Evaluation: Good ROM Head & Neck: Adequate Mental/Hyoid Distance: Adequate Mallampati Class: Class I Intubation Access Assessment: Good - Pulmonary Exam CTA: Yes - Cardiac Exam Cardiac Exam: RRR - Pre-Operative Health Status ASA Pre-Surgery Classification: ASA2, Emergency Proposed Anesthetic Plan: Epidural, Spinal - Pre-Anesthesia Comment Pre-Anesthesia Comments: 21y 31.5wks who presented with elevated BP's and DUNCAN, but denied other symptoms. Pt now for . Rpt Plt 161 - Pulmonary Hx Asthma: No COPD: No Hx Pneumonia: No - Cardiovascular System Hx Hypertension: No - Central Nervous System Hx Seizures: No Hx Psychiatric Problems: No - Endocrine Hx Renal Disease: No Hx End Stage Renal Disease: No Hx Hypothyroidism: No Hx Hyperthyroidism: No - Hematic Hx Anemia: Yes Hx Sickle Cell Disease: No - Other Systems Hx Alcohol Use: No
[2017-03-25] MEDS ORDERED: ANCEF/STERILE WATER 2 GM/20 ML 2 GM/20 ML SYRINGE IV NR (16:00)
[2017-03-25] MEDS ORDERED: BICITRA PO SCH (16:00)
[2017-03-25] MEDS ORDERED: PITOCin/NS 20 UNIT/1000ML DRIP 20 UNITS/1,000 ML BAG IV SCH ×2 (16:00→18:00)
[2017-03-25] MEDS ORDERED: ANCEF/STERILE WATER 2 GM/20 ML IV ONE (16:35)
[2017-03-25] MEDS ORDERED: WATER FOR IRRIG STERILE IR ONE (16:35)
[2017-03-25] MEDS ORDERED: NACL 0.9% IR ONE (16:35)
[2017-03-25] MEDS ORDERED: NEO SYNEPHRINE/NS Syringe(OR USE) IV ONE (16:36)
[2017-03-25] MEDS ORDERED: VERSED ONE (16:53)
[2017-03-25] MEDS ORDERED: SUBLIMAZE ONE (16:57)
[2017-03-25] MEDS ORDERED: ASTRAMORPH PF 10MG/10ML ONE (17:17)
--- NOTE | 2017-03-25 17:28 | Operative Report ---
Operative Report Operative Report: DATE: [] PREOPERATIVE DIAGNOSIS: 21-year-old at 32 weeks, Severe IUGR (<1%), Preeclampsia with severe features, category 3 tracing (Inability to tolerate labor) POSTOP DIAGNOSIS: As above NAME OF PROCEDURE: Primary low transverse section SURGEON: DAVID ALFORD MD TAXATION ECONOMIST: [] ANESTHESIA: Combined spinal epidural EBL: 900 mL PATHOLOGY SPECIMEN: Placenta URINE OUTPUT: 350 mL FINDINGS: Female Infant in cephalic presentation, time of 16:46, weighed 2 lbs. 10 oz. or 1183 g, Apgars 8 and 9, tortuous blood vessels on the anterior surface of this ~28 wk sized uterus, otherwise normal tubes and ovaries bilaterally DESCRIPTION OF PROCEDURE: After informed consent, patient was taken to the operating room where she was prepped and draped in a sterile fashion. Pfannestial incision was performed 2 cm above the pubic symphysis. This was then carried down to the underlying rectus fascia which was scored in the midline. The fascial incision was extended laterally with the use of Reinoso scissors, anterior leaf was then grasped with Oscar's elevated dissected sharply and bluntly off the underlying rectus. In a similar fashion the inferior leaf was grasped elevated dissected sharply and bluntly off the underlying rectus. The rectus was in the midline and the peritoneal cavity was entered without difficulty. After good visualization of the bladder the peritoneal layer was extended up and down; bladder blade was placed in the patient's pelvic cavity, bladder flap could not be created. She did have a lower segment which was bulging so a hysterotomy incision was then performed with clear amniotic fluid noted. Infant in cephalic presentation was delivered without difficulty in the usual manner. Cord was allowed to pulse for ~ 1 minute per NICU recommendation and then milked. It was then clamped, cut and was handed over to waiting NICU staff. The placenta was then delivered intact, the uterus was then exteriorized cleared of all clots and debris. Her hysterotomy incision was then closed in a running locked fashion with 0 Vicryl on a CTX; using the same suture were able to imbricate the initial layer. The uterus was then returned to the patient's pelvic cavity; the peritoneal edges were grasped with hemostats and Paris's; irrigation was used to clear the gutters of all clots and debris. Tisseel hemostatic agent was applied copiously over the hysterotomy incision. The peritoneal layer was closed in a running fashion with 3-0 Vicryl; the rectus was reapproximated with a single figure-of- eight stitch. The fascia was then closed in a running fashion with 0 Vicryl; the subcutaneous layer was reapproximated with a single [id number] stitch. The skin was then closed in a subcuticular manner with 4-0 Monocryl. She tolerated the procedure well lap and instrument counts were correct 2, she did receive 2 grams of Ancef prior to the procedure. She is transferred to PACU in stable condition.
[2017-03-25] MEDS ORDERED: LANSINOH TP PRN (17:30)
[2017-03-25] MEDS ORDERED: NARCAN 0.4 MG/1 ML IV PRN ×2 (17:30→17:46)
[2017-03-25] MEDS ORDERED: ZOFRAN IV PRN ×2 (17:30→17:46)
[2017-03-25] MEDS ORDERED: MILK OF MAGNESIA PO PRN (17:30)
[2017-03-25] MEDS ORDERED: SENOKOT PO PRN (17:30)
[2017-03-25] MEDS ORDERED: MYLICON PO PRN (17:30)
[2017-03-25] MEDS ORDERED: ANUCORT-HC PR PRN (17:30)
[2017-03-25] MEDS ORDERED: TUCKS PAD TP PRN (17:30)
[2017-03-25] MEDS ORDERED: NUBAIN IV PRN (17:46)
[2017-03-25] MEDS ORDERED: DILAUDID IV PRN ×2 (17:46)
[2017-03-25] MEDS ORDERED: SODIUM CHLORIDE FLUSH SYRINGE 10 ML IV NR (18:00)
--- NOTE | 2017-03-25 18:13 | Post Anesthesia Evaluation ---
- Post Anesthesia Evaluation Patient Participated: Yes Airway Patent: Yes Stable Respiratory Function: Yes Nausea/Vomiting: No Temp > 96.8F: Yes Pain Manageable: Yes Adequeate Hydration: Yes Anesthesia Complications: No Block Receding Appropriately: Yes (small movement of feet) Patient on Ventilator: No
[2017-03-25] MEDS: TORADOL IV PRN (18:55)
[2017-03-25] MEDS: NORMODYNE PO SCH (19:09)
[2017-03-25] MEDS ORDERED: APRESOLINE IV PRN (19:47)
[2017-03-26] MEDS: TORADOL IV PRN (05:04)
[2017-03-26 05:36] LABS: Hematocrit 24.7 % (30.3-42.9); Hemoglobin 8.3 gm/dl (10.1-14.3)
--- NOTE | 2017-03-26 08:50 | Progress Note ---
Assessment and Plan A: POD 1 - stable PIH Anemia - asymptomatic P: Continue routine postop orders Discontinue mclaughlin catheter and start ambulating with assistance as tolerated Continue Labetalol 200mg PO BID Continue Ferrous sulfate 325mg PO daily Subjective - Subjective Date of service: 03/26/17 Principal diagnosis: Primary LTCS, 32 weeks with pre-eclampsia, IUGR Patient reports: appetite normal, pain well controlled, other (mclaughlin catheter in place), no flatus, no bowel movement [place]: in NICU Objective - Vital Signs Latest vital signs: Vital Signs Temp Pulse Resp BP BP Pulse Ox 03/26/17 06:03 97.5 F L 18 137/87 03/26/17 05:09 97.3 F L 18 141/89 03/26/17 02:11 97.3 F L 121/83 03/26/17 01:29 146/97 03/25/17 22:30 97.8 F 65 16 138/93 99 03/25/17 20:30 97.6 F 60 16 140/91 98 03/25/17 19:09 65 162/104 03/25/17 18:55 12 03/25/17 18:25 60 12 166/102 100 03/25/17 18:10 56 L 18 155/94 100 03/25/17 17:54 59 L 16 146/94 100 03/25/17 17:51 58 L 16 151/96 100 03/25/17 17:48 57 L 18 148/96 100 03/25/17 17:45 62 16 158/90 100 03/25/17 17:37 98.4 F 62 16 150/92 100 03/25/17 15:49 73 100 03/25/17 15:43 71 100 03/25/17 15:38 73 100 03/25/17 15:33 81 100 03/25/17 15:28 76 100 03/25/17 15:23 79 100 03/25/17 15:17 83 100 03/25/17 15:13 77 99 03/25/17 14:39 72 100 03/25/17 14:34 78 100 03/25/17 14:29 77 99 03/25/17 14:24 80 100 03/25/17 14:19 74 100 03/25/17 14:14 74 100 03/25/17 14:09 79 99 03/25/17 14:04 85 100 03/25/17 13:59 77 100 03/25/17 13:54 69 100 03/25/17 13:49 68 100 03/25/17 13:44 71 100 03/25/17 13:39 69 100 03/25/17 13:34 69 100 03/25/17 13:29 66 03/25/17 13:24 78 03/25/17 13:19 67 03/25/17 13:14 65 03/25/17 13:08 70 100 03/25/17 13:04 70 100 03/25/17 12:59 80 100 03/25/17 12:54 70 100 03/25/17 12:49 73 100 03/25/17 12:44 74 100 03/25/17 12:39 80 100 03/25/17 12:34 62 100 03/25/17 12:31 63 136/85 03/25/17 11:35 71 129/76 03/25/17 10:38 74 141/75 Intake and Output 03/25/17 03/26/17 03/26/17 23:59 07:59 15:59 Intake Total 3000 Output Total 2050 800 Balance 950 -800 Intake: IV 3000 Lactated Ringers 1,000 ml 1000 @ 125 mls/hr IV DIRECT ABEL Rx#:[id number] Output: Urine 2049 800 Indwelling Catheter 800 Uretheral (Mclaughlin) 850 Other: Total, Output Amount 800 - Exam Cardiovascular: Present: Regular rate, Normal S1, Normal S2, No murmurs Lungs: Present: Clear to auscultation, Normal air movement Abdomen: Present: normal appearance, soft Vulva: both: normal Uterus: Present: normal, firm, fundal height below umbilicus Extremities: Present: normal Deep Tendon Reflex Grade: Normal +2 Incision: Present: dressed (small blood noted on posterior surface r/t lochia) - Labs Labs: Abnormal lab results 03/25/17 03/25/17 03/25/17 Range/Units 12:37 15:14 21:23 WBC 13.4 H (4.5-11.0) K/mm3 RBC 3.19 L (3.65-5.03) M/mm3 Hgb (10.1-14.3) gm/dl Hct (30.3-42.9) % MCV 101 H (79-97) fl MCH 33 H (28-32) pg Magnesium 5.30 H 4.60 H (1.7-2.3) mg/dL 03/26/17 03/26/17 Range/Units 05:21 05:21 WBC (4.5-11.0) K/mm3 RBC (3.65-5.03) M/mm3 Hgb 8.3 L (10.1-14.3) gm/dl Hct 24.7 L D (30.3-42.9) % MCV (79-97) fl MCH (28-32) pg Magnesium 5.00 H (1.7-2.3) mg/dL
[2017-03-26] MEDS: FEOSOL PO SCH (10:00)
[2017-03-26] MEDS: PRENATAL VITAMIN PO SCH (10:00)
[2017-03-26] MEDS: MOTRIN PO PRN (10:52)
[2017-03-26] MEDS: PERCOCET 5/325 PO PRN (10:54)
[2017-03-26] MEDS: NORMODYNE PO SCH ×2 (11:01→22:03)
[2017-03-26] MEDS ORDERED: ZOFRAN IM ONE (16:29)
[2017-03-26] MEDS ORDERED: ZOFRAN IV ONE (17:51)
[2017-03-27] MEDS: MOTRIN PO PRN ×4 (00:04→23:45)
--- NOTE | 2017-03-27 12:45 | Progress Note ---
Assessment and Plan A: POD #2 Preeclampsia Asymptomatic Anemia P: Follow Routine postOp Orders Off Labetolol x 1 day ( BPs Stable) Consulted Dr Humberto Pires D/C home in the AM RTO in 3 Days for BP check Subjective - Subjective Date of service: 03/27/17 Principal diagnosis: Primary LTCS, 32 weeks with pre-eclampsia, IUGR Patient reports: appetite normal, voiding normally, pain well controlled, flatus , ambulating normally, other (Denies all s/s of PIH) : in NICU Objective - Vital Signs Latest vital signs: Vital Signs Temp Pulse Resp BP BP Pulse Ox 03/27/17 08:05 98.6 F 77 18 117/75 100 03/27/17 06:30 18 03/27/17 01:04 18 03/27/17 00:55 99.2 F 80 18 122/69 99 03/27/17 00:04 18 03/26/17 22:03 88 128/77 03/26/17 16:32 98.2 F 66 20 103/61 99 Intake and Output 03/26/17 03/27/17 03/27/17 22:59 06:59 14:59 Intake Total 360 480 240 Output Total 600 300 Balance -240 180 240 Intake: Oral 360 480 120 Intake, Free Water 120 Output: Urine 600 300 Void 600 300 Other: Total, Intake Amount 240 240 120 Total, Output Amount 400 300 # Voids Void 1 1 1 - Exam Breasts: Present: normal Cardiovascular: Present: Regular rate Lungs: Present: Clear to auscultation, Normal air movement Abdomen: Present: normal appearance, soft, normal bowel sounds, abnormal bowel sounds Uterus: Present: normal, firm, fundal height below umbilicus Extremities: Present: normal Incision: Present: normal, dry, intact
--- NOTE | 2017-03-27 12:46 | Discharge Summary ---
Providers - Providers Date of Admission: 03/23/17 16:33 Date of discharge: 03/28/17 Attending physician: ED BORJA MD 03/26/17 07:39 Consult to Case Management [CONS] Routine Services Needed at Discharge: Other Notified:: katie Phone number called:: [phone] Was contact made?: No If yes, spoke with:: will call today Comment:: mother pos. for john Primary care physician: ED BORJA MD Hospitalization Reason for admission: observation, other (Preeclampsia) Delivery: Procedure: primary low transverse Episiotomy: none Laceration: none Incision: normal, dry, intact Other procedures: none complications: none Discharge diagnosis: delivery Condition at discharge: Good Disposition: DC-01 TO HOME OR SELFCARE Plan - Discharge Medications Prescriptions: Ibuprofen [Motrin 600 MG tab] 600 mg PO Q8H PRN #30 tablet PRN Reason: Pain Multivitamin with Iron [Multivitamins with Iron] 1 each PO DAILY #30 tablet oxyCODONE /ACETAMINOPHEN [Percocet 5/325] 1 tab PO Q6HR PRN #30 tablet PRN Reason: Pain - Provider Discharge Summary Activity: routine, no sex for 6 weeks, no heavy lifting 4 weeks, no strenuous exercise Diet: routine Instructions: routine Additional instructions: [] Smoking cessation referral if applicable(refer to patient education folder for contact #) [] Refer to [facility]'s [facility] Booklet Call your doctor immediately for: * Fever > 100.5 * Heavy vaginal bleeding ( >1 pad per hour) * Severe persistent headache * Shortness of breath * Reddened, hot, painful area to leg or breast * Drainage or odor from incision. * Keep incision clean and dry at all times and follow doctor's instructions regarding bathing/showering - Follow up plan Follow up: ED BORJA MD [Primary Care Provider] - 3 Days
[2017-03-27] MEDS: NORMODYNE PO SCH ×3 (14:52→22:24)
[2017-03-27] MEDS: PRENATAL VITAMIN PO SCH (14:53)
[2017-03-27] MEDS: FEOSOL PO SCH (14:53)
[2017-03-27] MEDS: PERCOCET 5/325 PO PRN ×2 (15:06→23:48)
[2017-03-28] MEDS: MOTRIN PO PRN ×2 (05:48→13:01)
[2017-03-28] MEDS: NORMODYNE PO SCH (09:52)
[2017-03-28] MEDS: PRENATAL VITAMIN PO SCH (09:52)
[2017-03-28] MEDS: FEOSOL PO SCH (09:52)
[2017-03-28 13:53] VITALS: BP 139/90
== END 2017-03-28 13:15 | disposition home or self-care (01) | DRG 765 ==
LOC: TRG 13:21 → LD 15:08 → TRG 16:33 → LD 16:33 → OB 03-25 20:24
PROVIDERS: ADMIT Obstetrics & Gynecology; ATTEND Obstetrics & Gynecology
PROC: 10D00Z1 Extraction of Products of Conception, Low, Open Approach (ICD-10-PCS; principal; 2017-03-25)
DX: O14.14 Severe pre-eclampsia complicating childbirth (principal); O99.12 Other diseases of the blood and blood-forming organs and certain disorders involving the immune mechanism complicating childbirth; O99.324 Drug use complicating childbirth; O36.5930 Maternal care for other known or suspected poor fetal growth, third trimester, not applicable or unspecified; D69.6 Thrombocytopenia, unspecified; O75.0 Maternal distress during labor and delivery; O26.893 Other specified pregnancy related conditions, third trimester; Z3A.32 32 weeks gestation of pregnancy; Z37.0 Single live birth; O99.02 Anemia complicating childbirth; D50.9 Iron deficiency anemia, unspecified; F12.90 Cannabis use, unspecified, uncomplicated
CPT/HCPCS: 36415; 76815; 76816; 76817; 76819; 76820; 80053; 80307; 81001; 82565; 82570; 83036; 83615; 83735; 84156; 84450; 84460; 84550; 85014; 85018; 85027; 86850; 86900; 86901; 88307; 99211; C9250; G0463; J0360; J0690; J0702; J1885; J2250; J2274; J2370; J2405; J2590; J3010; J3475; J7030; J7120

== ENCOUNTER 2017-03-29 16:33 | Observation (INO) | payer MEDICAID ==
[2017-03-29 17:55] LABS: Basophils % (Auto) 0.1 % (0.0-1.8); Eosinophils # (Auto) 0.1 K/mm3 (0.0-0.4); Eosinophils % (Auto) 0.8 % (0.0-4.3); Hematocrit 21.7 % (30.3-42.9); Hemoglobin 7.3 gm/dl (10.1-14.3); Lymphocytes # (Auto) 4.1 K/mm3 (1.2-5.4); Lymphocytes % (Auto) 30.4 % (13.4-35.0); Mean Corpuscular HGB Conc 33 % (30-34); Mean Corpuscular Hemoglobin 34 pg (28-32); Mean Corpuscular Volume 103 fl (79-97); Monocytes # (Auto) 0.8 K/mm3 (0.0-0.8); Monocytes % (Auto) 5.7 % (0.0-7.3); Platelet Count 266 K/mm3 (140-440); Red Blood Count 2.11 M/mm3 (3.65-5.03); Red Cell Distribution Width 14.5 % (13.2-15.2)
[2017-03-29 18:05] LABS: INR 0.92 (0.87-1.13)
[2017-03-29 18:16] LABS: Alanine Aminotransferase 26 units/L (7-56); Albumin 2.7 g/dL (3.9-5); BUN/Creatinine Ratio 16; Blood Urea Nitrogen 11 mg/dL (7-17); Calcium 8.7 mg/dL (8.4-10.2); Hemolysis Index 10; Lipase 48 units/L (13-60)
[2017-03-29] MEDS ORDERED: NACL 0.9% 1000 ML 1,000 ML IV ONE (18:43)
[2017-03-29] MEDS ORDERED: APRESOLINE IV ONE (18:44)
[2017-03-29] MEDS ORDERED: ZOFRAN IV ONE (18:44)
[2017-03-29] MEDS ORDERED: SUBLIMAZE IV ONE (18:45)
[2017-03-29] MEDS ORDERED: LASIX IV ONE (18:45)
--- NOTE | 2017-03-29 18:50 | Emergency Department Report ---
Chief Complaint: Laceration/Recheck/Suture Stated Complaint: POST OP BLEEDING Time Seen by Provider: 03/29/17 18:34 - HPI History of Present Illness: The patient is a 21-year-old female 5 days status post , with a history of preeclampsia, and presents for evaluation of surgical site bleeding, abdominal pain, leg swelling, and headache. The patient states that this morning around 8 AM, she awoke with continuous leading from her surgical site, and cramping surrounding abdominal pain. She has also developed headache throughout the day and progressive swelling of her legs since this evening. 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 - Exam Vital Signs: Vital Signs 03/29/17 16:48 Temperature 98 F Pulse Rate 103 H Respiratory 18 Rate Blood Pressure 162/105 O2 Sat by Pulse 99 Oximetry MSE screening note: Focused history and physical exam performed. Due to findings the following was ordered: Labs and imaging are ordered including CT scan abdomen and pelvis to rule out postop hemorrhage and infection. ED Medical Decision Making - Lab Data Result diagrams: 03/29/17 17:27 03/29/17 17:27 ED Disposition for MSE Condition: Stable
[2017-03-29 19:17] LABS: Magnesium 1.2 mg/dL (1.7-2.3)
[2017-03-29 20:13] LABS: Bacteria,Urine 1+ /HPF (Negative); Bilirubin,Urine NEG (Negative); Blood,Urine LG (Negative); Color,Urine Yellow (Yellow); Mucus,Urine FEW /HPF; Nitrite,Urine NEG (Negative); Urobilinogen,Urine < 2.0 mg/dL (<2.0)
--- NOTE | 2017-03-29 21:07 | Emergency Department Report ---
ED HPI - General Chief complaint: Laceration/Recheck/Suture Stated complaint: POST OP BLEEDING Time Seen by Provider: 03/29/17 18:34 Source: patient Mode of arrival: Ambulatory Limitations: No Limitations - History of Present Illness Initial comments: This is a 21-year-old -[place] female who underwent a section on 03/25/2017 and was discharged from the hospital on 03/28/2017 presents to the emergency room with bloody drainage from the incision site as well as cramping and pain. 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 The patient states that yesterday upon discharge her bandages did not have any type of blood on them. However, this morning whenever she woke up she noticed that her bandages were soaked in blood. She also has a history of preeclampsia. She states that her legs have been swollen during the . MD Complaint: abdominal pain -: Sudden Location: abdomen Radiation: suprapubic Severity: moderate Quality: cramping Consistency: constant Improves with: none Worsens with: none Associated symptoms: denies other symptoms, abdominal pain. denies: vaginal bleeding, vaginal discharge, headache, malaise, rash, seizure, shortness of breath Vaginal bleeding: none :: No OB History - Current : preeclampsia OB History - Previous Pregnancies: preeclampsia Pre-rod care: followed by OB - Related Data : 2 Para: 2 Ab: 0 Home Medications Medication Instructions Recorded Confirmed Last Taken No Known Home Medications [No 03/29/17 03/29/17 Unknown Reported Home Medications] Allergies Allergy/AdvReac Type Severity Reaction Status Date / Time No Known Allergies Allergy Unverified 05/18/13 19:31 ED Review of Systems ROS: Stated complaint: POST OP BLEEDING Other details as noted in HPI Comment: All other systems reviewed and negative Constitutional: no symptoms reported, see HPI Eyes: as per HPI ENT: as per HPI Respiratory: see HPI Cardiovascular: as per HPI Endocrine: see HPI Gastrointestinal: as per HPI Genitourinary: as per HPI Musculoskeletal: as per HPI Skin: as per HPI Neurological: as per HPI Psychiatric: as per HPI Hematological/Lymphatic: as per HPI ED Past Medical Hx - Past Medical History Hx Hypertension: Yes (preeclampsia) Hx Congestive Heart Failure: No Hx Diabetes: No Hx Deep Vein Thrombosis: No Hx Renal Disease: No Hx Sickle Cell Disease: No Hx Seizures: No Hx Asthma: No Hx COPD: No Hx HIV: No - Surgical History Additional Surgical History: - Social History Smoking Status: Former Smoker Substance Use Type: Marijuana - Medications Home Medications: Home Medications Medication Instructions Recorded Confirmed Last Taken Type No Known Home Medications [No 03/29/17 03/29/17 Unknown History Reported Home Medications] ED Physical Exam - General Limitations: No Limitations General appearance: alert, in no apparent distress - Head Head exam: Present: atraumatic, normocephalic - Eye Eye exam: Present: normal appearance, PERRL, EOMI - ENT ENT exam: Present: normal exam - Neck Neck exam: Present: normal inspection - Respiratory Respiratory exam: Present: normal lung sounds bilaterally, respiratory distress. Absent: wheezes, rales, rhonchi, stridor - Cardiovascular Cardiovascular Exam: Present: regular rate, normal rhythm, normal heart sounds. Absent: irregular rhythm - GI/Abdominal GI/Abdominal exam: Present: soft, tenderness (Steri-Strips are appreciated on the incision. At the midline of the incision, blood is noted to be oozing from the site. There is tenderness to palpation to this site. Findings could be consistent with a wound dehiscence.) - Extremities Exam Extremities exam: Present: normal inspection, full ROM - Back Exam Back exam: Present: normal inspection, full ROM - Neurological Exam Neurological exam: Present: alert, oriented X3, CN II-XII intact - Psychiatric Psychiatric exam: Present: normal affect, normal mood - Skin Skin exam: Present: warm, dry, intact, normal color ED Course Vital Signs 03/29/17 03/29/17 03/29/17 16:48 19:24 19:25 Temperature 98 F 98.5 F Pulse Rate 103 H 101 H 82 Respiratory 18 17 Rate Blood Pressure 162/105 Blood Pressure 161/99 [Left] O2 Sat by Pulse 99 100 Oximetry 03/29/17 03/29/17 03/29/17 19:30 19:45 20:00 Temperature Pulse Rate 89 90 97 H Respiratory 13 18 21 Rate Blood Pressure 144/108 160/106 147/103 Blood Pressure [Left] O2 Sat by Pulse 100 100 100 Oximetry 03/29/17 03/29/17 03/29/17 20:34 20:45 21:00 Temperature Pulse Rate 106 H 97 H 99 H Respiratory 15 13 Rate Blood Pressure 147/103 129/99 138/94 Blood Pressure [Left] O2 Sat by Pulse 100 99 99 Oximetry 03/29/1718 03/29/17 21:15 21:30 21:45 Temperature Pulse Rate 91 H 98 H 98 H Respiratory 14 20 17 Rate Blood Pressure 122/95 132/90 133/86 Blood Pressure [Left] O2 Sat by Pulse 100 100 100 Oximetry 03/29/17 22:00 Temperature Pulse Rate 95 H Respiratory 14 Rate Blood Pressure 133/86 Blood Pressure [Left] O2 Sat by Pulse 99 Oximetry - Reevaluation(s) Reevaluation #1: 03/29/17 21:11 I reviewed the findings with the patient. She is anemic at this time. I'm awaiting a callback from her [employer] doctor at this time. Her magnesium level is also low and we will need to replace that as well. 03/29/17 21:11 03/29/17 22:[address] scan reveals a large hematoma at the site of the section. She also has some mild hydronephrosis. She also may be constipated. Eyes discussed this with the [employer] doctor. There still appears to be some oozing from the surgical site. At this time we will go ahead and admit the patient under observation. We will recheck her hemoglobin as well and if continues to fall she may require a blood transfusion. ED Medical Decision Making - Lab Data Result diagrams: 03/29/17 17:27 03/29/17 17:27 Critical care attestation.: If time is entered above; I have spent that time in minutes in the direct care of this critically ill patient, excluding procedure time. ED Disposition Clinical Impression: Wound dehiscence, , Hypomagnesemia Anemia Qualifiers: Anemia type: other cause Other causes of anemia: acute posthemorrhagic Qualified Code(s): D62 - Acute posthemorrhagic anemia Pre-eclampsia Qualifiers: Trimester: unspecified trimester Qualified Code(s): O14.90 - Unspecified pre- eclampsia, unspecified trimester Disposition: OP ADMIT IP TO THIS HOSP Is pt being admited?: Yes Does the pt Need Aspirin: No Condition: Stable Instructions: Hypertension (ED) Referrals: PRIMARY CARE, [Primary Care Provider] - 3-5 Days
--- NOTE | 2017-03-29 21:36 | Cat Scan Report ---
FINAL REPORT PROCEDURE: CT ABDOMEN PELVIS W CON TECHNIQUE: Computerized axial tomography of the abdomen and pelvis was performed after the IV injection of iodinated nonionic contrast. HISTORY: bleeding and pain to site COMPARISON: No prior studies are available for comparison. FINDINGS: Lower Lung campos: No focal abnormality is seen. Upper Abdomen: Gallbladder is partially contracted. The liver showed no focal abnormalities. The adrenal glands, the pancreas and spleen are unremarkable. Kidneys, Ureters and Urinary bladder: Collecting systems of both kidneys are prominent right side greater than left. No renal or ureteral calculi are seen. The uterus is enlarged status post recent and may be compressing the ureters. Retroperitoneum: Abdominal aorta appears normal. Nonspecific subcentimeter lymph nodes are seen in the retroperitoneum. No pathologically enlarged lymph nodes are identified. Bowel: There is moderate to large amount of stool throughout the colon. The patient may be constipated. Bowel loops otherwise unremarkable. Normal-appearing appendix is seen in the right lower quadrant. Reproductive organs: Uterus is diffusely enlarged consistent with recent . Uterus otherwise unremarkable. No abnormal adnexal masses are seen. Other: There is increased density in the subcutaneous tissues anterior to the lower pelvis as well as a few bubbles of gas suggesting recent site procedure. An oval density is present extending transverse approximately 1.3 centimeter and AP approximately 2.5 centimeters suggesting a hematoma. No herniated loops of bowel are identified. There is a small amount of free intraperitoneal gas consistent with recent . No acute bony abnormalities are seen. IMPRESSION: Soft tissue density seen lower pelvis anteriorly suggesting large hematoma related to recent . Small amount of free intraperitoneal gas is also visualized likely related to the . There is mild to moderate hydronephrosis on the right and mild hydronephrosis on the left which may be secondary to compression of the ureter secondary to uterine enlargement. Stool pattern as described. The patient may be constipated.
--- NOTE | 2017-03-29 22:53 | Short Stay Summary ---
Short Stay Documentation Date of service: 03/29/17 Narrative H&P: C/O: Oozing from her incision 21 y/o is s/p primary for severe preeclampsia on 03/25/2017. She was discharged from the hospital yesterday. She claims to have started oozing from her incision this morning and presented to clinic. Her BP was also noted to be elevated for sensitivity emergency room In the ED, her BP was initially elevated but is now within normal limits. HELLP labs obtained show anemia with hemoglobin 7.[address] abdomen shows soft tissue density seen in the lower pelvis anteriorly suggested large hematoma related to recent . Small amount of free intraperitoneal gas visualized likely related to . There is mild to moderate hydronephrosis on the right and mild hydronephrosis on the left is probably secondary to compression of the ureters secondary to uterine enlargement. Medhx:None Sughx:C-S as above Meds:Percocet, M/vit ALL:NKDA ROS: No chest pain, no shortness of breath fever chills On exam, patient seen lying supine in bed with her sister appears in no acute distress Laughing and joking asking to be discharged home Abdomen is soft, incision is oozing old dark blood from the middle but appears intact and clean and dry A: Wound Hematoma Anemia HTN disorder of P: -Repeat hemoglobin and hematocrit now -Will dress wound with pressure dressing -Start labetalol 200mg BID and provided prescription for discharge home -Final disposition after H&H result available Addendeum: Discussed with ED physician about discharge from the emergency room if hemoglobin and hematocrit stable. Patient, however, transferred to the floor by ED staff. Plan at this time is to repeat H&H on the floor and discharge home from the floor in stable. - History Past Medical History: No medical history Past Surgical History: Social history: single, full code, no smoking, no alcohol abuse, no prescription drug abuse, no IV drug use - Allergies and Medications Current Medications: Allergies No Known Allergies Allergy (Unverified 05/18/13 19:31) Home Medications Medication Instructions Recorded Confirmed Last Taken Type Labetalol [Normodyne TAB] 200 mg PO BID #60 tablet 03/29/17 Unknown Rx - Physical exam General appearance: no acute distress, well-nourished Lungs: Clear to auscultation, Normal air movement Heart: Regular rate, Normal S1, Normal S2 Gastrointestinal: normal, no tenderness, no distended, no guarding Female Genitourinary: deferred Extremities: no ischemia - Hospital course Hospital course: Patient admitted to the hospital inadvertently. Wound was cleaned by mother- baby staff with minimal to no bleeding noted. A repeat H&H was stable at ~ 7, patient asymptomatic declined blood transfusion. She was discharged home in stable condition - Disposition Condition at discharge: Stable Disposition: DC-01 TO HOME OR SELFCARE Short Stay Discharge Plan Diet: low salt Wound: keep clean and dry Special Instructions: record daily BP diary Follow up with: PRIMARY CARE, [Primary Care Provider] - 3-5 Days Prescriptions: Labetalol [Normodyne TAB] 200 mg PO BID #60 tablet Multivitamin with Iron [Multivitamins with Iron] 1 each PO DAILY #30 tablet
[2017-03-30 00:06] VITALS: BP 138/82
== END 2017-03-30 00:10 | disposition home or self-care (01) ==
LOC: ED 16:33 → OB 22:19
PROVIDERS: ADMIT Obstetrics & Gynecology Gynecology; ATTEND Obstetrics & Gynecology Gynecology
DX: O90.0 Disruption of cesarean delivery wound (principal)
CPT/HCPCS: 36415; 74177; 80053; 81001; 82140; 83690; 83735; 83880; 85014; 85018; 85025; 85610; 86900; 86901; 96361; 96374; 96375; 99285; G0378; J0360; J1940; J2405; J3010; J7030; Q9967

== ENCOUNTER 2017-04-03 09:58 | Emergency (ER) | payer MEDICAID ==
[2017-04-03 10:11] VITALS: BP 132/89
--- NOTE | 2017-04-03 12:21 | Emergency Department Report ---
ED Abdominal Pain HPI - General Chief Complaint: Laceration/Recheck/Suture Stated Complaint: POST OP BLEEDING Time Seen by Provider: 04/03/17 12:08 Source: patient Mode of arrival: Ambulatory Limitations: No Limitations - History of Present Illness MD Complaint: abdominal pain -: Gradual Location: suprapubic Severity scale (0 -10): 8 Associated Symptoms: denies other symptoms. denies: fever - Related Data Previous Rx's Medication Instructions Recorded Last Taken Type Labetalol [Normodyne TAB] 200 mg PO BID #60 tablet 03/29/17 Unknown Rx Multivitamin with Iron 1 each PO DAILY #30 tablet 03/29/17 Unknown Rx [Multivitamins with Iron] Cephalexin [Keflex] 500 mg PO Q12HR #20 cap 04/03/17 Unknown Rx Allergies Allergy/AdvReac Type Severity Reaction Status Date / Time No Known Allergies Allergy Unverified 05/18/13 19:31 ED Review of Systems ROS: Stated complaint: POST OP BLEEDING Other details as noted in HPI Comment: All other systems reviewed and negative Constitutional: denies: fever, malaise Skin: other (DEHIS. CSEC WOUND FROM 2-1) ED Past Medical Hx - Past Medical History Hx Hypertension: Yes (preeclampsia) Hx Congestive Heart Failure: No Hx Diabetes: No Hx Deep Vein Thrombosis: No Hx Renal Disease: No Hx Sickle Cell Disease: No Hx Seizures: No Hx Asthma: No Hx COPD: No Hx HIV: No - Surgical History Additional Surgical History: - Social History Smoking Status: Never Smoker Substance Use Type: None - Medications Home Medications: Home Medications Medication Instructions Recorded Confirmed Last Taken Type Labetalol [Normodyne TAB] 200 mg PO BID #60 tablet 03/29/17 Unknown Rx Multivitamin with Iron 1 each PO DAILY #30 tablet 03/29/17 Unknown Rx [Multivitamins with Iron] Cephalexin [Keflex] 500 mg PO Q12HR #20 cap 04/03/17 Unknown Rx ED Physical Exam - General Limitations: No Limitations General appearance: alert - Head Head exam: Present: atraumatic - Eye Eye exam: Present: normal appearance Pupils: Present: normal accommodation - ENT ENT exam: Present: normal exam - Neck Neck exam: Present: tenderness - Respiratory Respiratory exam: Present: normal lung sounds bilaterally - Cardiovascular Cardiovascular Exam: Present: regular rate (90) - GI/Abdominal GI/Abdominal exam: Present: soft, tenderness, normal bowel sounds, other (ABOUT 1 INCH AREA OF CSEC WOUND IS OPEN AND DRAINING BROWN SEROSANG DRAINAGE. HAS BEEN SINCE WEDNESDAY. NO FEVER. ). Absent: distended, guarding, rebound, rigid, diminished bowel sounds - Extremities Exam Extremities exam: Present: normal inspection - Back Exam Back exam: Present: normal inspection - Neurological Exam Neurological exam: Present: alert, oriented X3 - Psychiatric Psychiatric exam: Present: normal affect - Skin Skin exam: Present: warm, dry ED Course Vital Signs 04/03/17 10:10 Temperature 97.5 F L Pulse Rate 105 H Respiratory 16 Rate Blood Pressure 132/89 [Right] O2 Sat by Pulse 100 Oximetry - Reevaluation(s) Reevaluation #1: 04/03/17 TO ER W OPEN CSEC WOUND 03/25 SECTION 03/29 CT SHOWED HEMATOMA WEDNESDAY 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 Reevaluation #2: 04/03/17 13:42 DR ALFORD AT BEDSIDE WAS GOING TO SEDATE AND PACK TODAY BUT PT DID NOT WANT TO OR NOT AVAILABLE WOUND CARE INSTRUCTIONS PT TO FOLLOW UP PER DR Keys FOR SURGICAL EXPLORATION AND MANAGEMENT ON WEDNESDAY GIVEN OPEN WOUND - KEFLEX PO ED Medical Decision Making - Lab Data Result diagrams: 04/03/17 12:38 04/03/17 12:38 - Medical Decision Making SEE NOTE - Differential Diagnosis DEH CSEC WOUND Critical care attestation.: If time is entered above; I have spent that time in minutes in the direct care of this critically ill patient, excluding procedure time. ED Disposition Clinical Impression: Wound dehiscence, Disposition: - TO HOME OR SELFCARE Is pt being admited?: No Does the pt Need Aspirin: No Condition: Stable Instructions: Wound Dehiscence (ED) Additional Instructions: RETURN TO ER TOMORROW IF YOU NEED US TO CHANGE THE WOUND DRESSING FOR YOU CHANGE DRESSING EVERY 12 HOURS KEEP WOUND CLEAN AND DRY WE WANT THAT FLUID TO COME OUT TYLENOL FOR PAIN MED ORDERED TODAY CALL DR Keys IF YOU DEVELOP A FEVER Prescriptions: Cephalexin [Keflex] 500 mg PO Q12HR #20 cap Referrals: LORI RODRIGUEZ MD [Primary Care Provider] - 3-5 Days DAVID ALFORD MD [Staff Physician] - 3-5 Days Time of Disposition: 13:46
[2017-04-03 12:59] LABS: Basophils % (Auto) 0.6 % (0.0-1.8); Eosinophils % (Auto) 0.4 % (0.0-4.3); Hematocrit 26.5 % (30.3-42.9); Lymphocytes # (Auto) 1.7 K/mm3 (1.2-5.4); Lymphocytes % (Auto) 21.9 % (13.4-35.0); Mean Corpuscular HGB Conc 34 % (30-34); Mean Corpuscular Hemoglobin 35 pg (28-32); Mean Corpuscular Volume 102 fl (79-97); Monocytes # (Auto) 0.5 K/mm3 (0.0-0.8); Monocytes % (Auto) 6.1 % (0.0-7.3); Platelet Count 386 K/mm3 (140-440); Red Blood Count 2.59 M/mm3 (3.65-5.03)
[2017-04-03] MEDS ORDERED: TRIPLE ANTIBIOTIC TP ONE (13:11)
[2017-04-03 13:34] LABS: Alanine Aminotransferase 13 units/L (7-56); Albumin 3.1 g/dL (3.9-5); BUN/Creatinine Ratio 17; Blood Urea Nitrogen 12 mg/dL (7-17); Calcium 8.7 mg/dL (8.4-10.2); Hemolysis Index 8
[2017-04-03] MEDS ORDERED: NACL 0.9% 1000 ML 1,000 ML IV ONE (13:41)
[2017-04-03] MEDS ORDERED: NACL 0.9% IR ONE (14:11)
== END 2017-04-03 14:11 | disposition home or self-care (01) ==
LOC: ED 09:58
DX: O90.0 Disruption of cesarean delivery wound (principal)
CPT/HCPCS: 36415; 80053; 85025; 99284; A6250

== ENCOUNTER 2017-04-06 10:02 | Outpatient (CLI) | payer MEDICAID ==
[2017-04-06] MEDS ORDERED: XYLOCAINE TOPICAL 4% TP ONE (11:07)
== END 2017-04-06 10:03 | disposition home or self-care (01) ==
LOC: WOUND 10:02
PROVIDERS: ATTEND Surgery
DX: T81.89XA Other complications of procedures, not elsewhere classified, initial encounter (principal); I10 Essential (primary) hypertension; Z87.891 Personal history of nicotine dependence; Y83.8 Other surgical procedures as the cause of abnormal reaction of the patient, or of later complication, without mention of misadventure at the time of the procedure; Y92.89 Other specified places as the place of occurrence of the external cause
CPT/HCPCS: 99215; G0463

== ENCOUNTER 2017-04-13 10:07 | Outpatient (CLI) | payer MEDICAID | END 2017-04-13 10:08 | disposition home or self-care (01) | LOC: WOUND 10:07 | PROVIDERS: ATTEND Surgery | DX: T81.89XD Other complications of procedures, not elsewhere classified, subsequent encounter (principal); I10 Essential (primary) hypertension; Z87.891 Personal history of nicotine dependence; Y83.8 Other surgical procedures as the cause of abnormal reaction of the patient, or of later complication, without mention of misadventure at the time of the procedure | CPT/HCPCS: 99214; G0463 ==

== ENCOUNTER 2020-12-30 13:59 | Outpatient (CLI) | payer MEDICAID ==
[2020-12-30] MEDS ORDERED: LACTATED RINGERS 1,000 ML IV ONE (14:30)
[2020-12-30 15:50] LABS: Bilirubin,Urine NEG (Negative); Blood,Urine NEG (Negative); Calcium Oxalate Crystals,Urine 1+; Color,Urine Yellow (Yellow); Mucus,Urine 1+ /HPF
[2020-12-30 16:57] VITALS: BP 126/82
[2020-12-30] MEDS ORDERED: BUTALB/ACETAMINOPHEN/CAFFEINE TAB PO NR (17:00)
== END 2020-12-30 18:00 | disposition home or self-care (01) ==
LOC: TRG 13:59 → APU 14:01 → TRG 18:00
PROVIDERS: ATTEND Obstetrics & Gynecology
DX: Z34.93 Encounter for supervision of normal pregnancy, unspecified, third trimester (principal); Z3A.35 35 weeks gestation of pregnancy
CPT/HCPCS: 59025; 81001